=== PATIENT | female | born 1945 | race Caucasian/White ===

== ENCOUNTER 2018-06-29 20:00 | Inpatient (IN) | payer OTHER, MEDICAID ==
[~2018-06-29] VITALS: Ht 154.9 cm; Wt 77.1 kg
[2018-06-29 20:00] VITALS: BP 102/45
[2018-06-29] MEDS ORDERED: NACL 0.9% 1,000 ML IV ONE (20:20)
[2018-06-29] MEDS ORDERED: HEPA500056 SUBQ (20:44)
[2018-06-29] MEDS ORDERED: TRAM50TA1 PO (20:44)
[2018-06-29] MEDS ORDERED: DOCU-299 PO (20:44)
[2018-06-29] MEDS ORDERED: BISA-213 RC (20:44)
[2018-06-29] MEDS ORDERED: ASCO500T45 PO (20:44)
[2018-06-29] MEDS ORDERED: MELA3TAB PO (20:44)
[2018-06-29] MEDS ORDERED: PREG150C PO (20:44)
[2018-06-29] MEDS ORDERED: CELE200C PO (20:44)
[2018-06-29] MEDS ORDERED: GABA400C PO (20:44)
[2018-06-29] MEDS ORDERED: PANT40EC PO (20:44)
[2018-06-29] MEDS ORDERED: CLON0.5T PO (20:44)
[2018-06-29] MEDS ORDERED: HYDR-1093 PO (20:44)
[2018-06-29] MEDS ORDERED: MAGN400S60 PO (20:44)
[2018-06-29] MEDS ORDERED: CARER90 PO (20:44)
[2018-06-29] MEDS ORDERED: ACET-2619 PO (20:44)
[2018-06-29] MEDS ORDERED: AMLO10TA87 PO (20:44)
[2018-06-29] MEDS ORDERED: NITR0.4T2 SL (20:44)
[2018-06-29] MEDS ORDERED: METO25TA PO (20:44)
[2018-06-29] MEDS ORDERED: IBUP-2213 PO (20:44)
[2018-06-29] MEDS ORDERED: FERR325E14 PO (20:44)
[2018-06-29] MEDS ORDERED: AMIO200T5 PO (20:44)
[2018-06-29] MEDS ORDERED: ASPI81CT89 PO (20:44)
[2018-06-29] MEDS ORDERED: LID5T TP (20:44)
[2018-06-29] MEDS ORDERED: HYDR100T79 PO (20:44)
[2018-06-29] MEDS ORDERED: ALBU3SOL83 IH (20:47)
[2018-06-29 21:09] LABS: BASOPHILS # (AUTO) 0.1 K/uL (0.00-0.22); BASOPHILS % (AUTO) 0.8 % (0.0-2.0); EOSINOPHILS # (AUTO) 0.7 K/uL (0-0.4); EOSINOPHILS % (AUTO) 9.3 % (0.0-4.0); HEMATOCRIT 23.5 % (36-48); HEMOGLOBIN 7.6 g/dL (12.0-16.0); LYMPHOCYTES # (AUTO) 2.4 K/uL (2.5-16.5); LYMPHOCYTES % (AUTO) 32.7 % (20.5-51.1); MEAN CORPUSCULAR HEMOGLOBIN 31 pg (27-31); MEAN CORPUSCULAR HGB CONC 32 g/dL (33-37); MEAN CORPUSCULAR VOLUME 96.5 fL (80-94); MONOCYTES # (AUTO) 0.6 K/uL (0.8-1.0); MONOCYTES % (AUTO) 8.5 % (1.7-9.3); NEUTROPHILS # (AUTO) 3.5 K/uL (1.8-7.7); NEUTROPHILS % (AUTO) 48.7 % (42.2-75.2); PLATELET COUNT (AUTO) 123 K/uL (140-450); RED BLOOD CELL COUNT(AUTO) 2.43 MIL/uL (4.20-5.40); RED CELL DISTRIBUTION WIDTH 18.7 % (11.6-13.7); WHITE BLOOD COUNT (AUTO) 7.2 K/uL (4.8-10.8)
[2018-06-29 21:17] LABS: CARBON DIOXIDE 25.8 mmol/L (21-32); CHLORIDE 101 mmol/L (98-107); CREATININE 1.1 mg/dL (0.6-1.3); GLUCOSE 109 mg/dL (74-106); POTASSIUM 4.8 mmol/L (3.5-5.1); SODIUM SERUM 134 mmol/L (136-145); UREA NITROGEN, BLOOD 24 mg/dL (7-18)
[2018-06-29 21:24] LABS: ALBUMIN 2.7 g/dL (3.4-5.0); ASPARTATE AMINOTRANSFERASE 31 U/L (15-37); TOTAL BILIRUBIN 0.4 mg/dL (0.0-1.0)
[2018-06-29 21:39] LABS: PROTHROMBIN TIME 10.1 secs (10.8-13.4)
[2018-06-29] MEDS ORDERED: ACETAMINOPHEN 325 MG TAB PO PRN ×2 (22:05→23:20)
[2018-06-29] MEDS ORDERED: DOCUSATE SODIUM 100 MG GELCAP PO PRN (22:05)
[2018-06-29] MEDS ORDERED: ONDANSETRON 4 MG/2 ML VIAL IM/IVP PRN (22:05)
[2018-06-29] MEDS ORDERED: MORPHINE SULFATE 2 MG/ML SYR IVP PRN (22:05)
[2018-06-29] MEDS ORDERED: ALBUTEROL SULFATE/IPRATROPIU 3 ML SOL IH PRN (22:05)
[2018-06-29 22:40] LABS: MAGNESIUM 1.6 mg/dL (1.8-2.4); PHOSPHORUS 4.6 mg/dL (2.5-4.9); THYROID STIMULATING HORMONE 7.34 uIU/mL (0.34-3.74)
[2018-06-29 22:45] VITALS: BP 108/52
[2018-06-29] MEDS ORDERED: IBUPROFEN 600 MG TAB PO PRN (23:20)
[2018-06-29] MEDS ORDERED: hydrOXYzine HCL 25 MG TAB PO PRN (23:20)
[2018-06-29] MEDS ORDERED: NITROGLYCERIN 0.4 MG TAB SL PRN (23:20)
[2018-06-29] MEDS ORDERED: BISACODYL 10 MG SUPP RC PRN (23:20)
[2018-06-29] MEDS ORDERED: PANTOPRAZOLE 40 MG TABEC PO SCH (23:20)
[2018-06-29] MEDS ORDERED: MAGNESIUM HYDROXIDE 2400 MG/30 ML UDC PO PRN (23:20)
[2018-06-30] MEDS ORDERED: NITROGLYCERIN 0.4 MG TAB SL PRN (00:30)
[2018-06-30] MEDS ORDERED: MAG SULF 2000 MG/WATER PREMIX 50 ML IV SCH (01:30)
[2018-06-30] MEDS: NACL 0.9% 1,000 ML IV SCH ×2 (01:32→15:40)
[2018-06-30 01:38] LABS: APPEARANCE,URINE CLEAR (CLEAR); BILIRUBIN,URINE NEGATIVE (NEGATIVE); BLOOD, URINE NEGATIVE (NEGATIVE); COLOR,URINE YELLOW (YELLOW); LEUKOCYTE ESTERASE ,URINE 1+ (NEGATIVE); NITRITE, URINE NEGATIVE (NEGATIVE); PH,URINE 6.5 (5.0-9.0); UGLUCOSE NEGATIVE (NEGATIVE)
[2018-06-30 01:44] LABS: RBC,URINE 0-5 (RARE) /HPF (0-5); WBC,URINE 16-25 (MOD) /HPF (0-5)
[2018-06-30 02:38] VITALS: BP 110/58
[2018-06-30] MEDS: PANTOPRAZOLE 40 MG TABEC PO SCH (05:35)
[2018-06-30 06:12] LABS: BASOPHILS # (AUTO) 0.1 K/uL (0.00-0.22); BASOPHILS % (AUTO) 0.9 % (0.0-2.0); EOSINOPHILS # (AUTO) 0.7 K/uL (0-0.4); EOSINOPHILS % (AUTO) 11.9 % (0.0-4.0); HEMATOCRIT 23.7 % (36-48); HEMOGLOBIN 7.7 g/dL (12.0-16.0); LYMPHOCYTES % (AUTO) 35.3 % (20.5-51.1); MEAN CORPUSCULAR HEMOGLOBIN 31 pg (27-31); MEAN CORPUSCULAR HGB CONC 32 g/dL (33-37); MEAN CORPUSCULAR VOLUME 96.7 fL (80-94); MONOCYTES # (AUTO) 0.5 K/uL (0.8-1.0); MONOCYTES % (AUTO) 8.3 % (1.7-9.3); NEUTROPHILS # (AUTO) 2.5 K/uL (1.8-7.7); NEUTROPHILS % (AUTO) 43.6 % (42.2-75.2); PLATELET COUNT (AUTO) 123 K/uL (140-450); RED BLOOD CELL COUNT(AUTO) 2.46 MIL/uL (4.20-5.40); RED CELL DISTRIBUTION WIDTH 18.9 % (11.6-13.7); WHITE BLOOD COUNT (AUTO) 5.7 K/uL (4.8-10.8)
[2018-06-30 06:36] LABS: ANION GAP 11.9 (8-16); CARBON DIOXIDE 25.4 mmol/L (21-32); CHLORIDE 105 mmol/L (98-107); GLUCOSE 87 mg/dL (74-106); POTASSIUM 4.3 mmol/L (3.5-5.1); SODIUM SERUM 138 mmol/L (136-145); UREA NITROGEN, BLOOD 22 mg/dL (7-18)
[2018-06-30] MEDS ORDERED: cefTRIAXone 1,000 MG VIAL ONE (06:48)
[2018-06-30 06:51] LABS: MAGNESIUM 2.4 mg/dL (1.8-2.4); PHOSPHORUS 3.9 mg/dL (2.5-4.9)
[2018-06-30 08:00] VITALS: BP_SYST 102; BP_SYST 125; BP_DIAS 51
[2018-06-30] MEDS ORDERED: LIDOCAINE 5% 1 EA PATCH TP SCH (09:00)
[2018-06-30] MEDS ORDERED: CELECOXIB 100 MG CAP PO SCH (09:00)
[2018-06-30] MEDS: hydrALAZINE 25 MG TAB PO SCH ×3 (09:00→17:07)
[2018-06-30] MEDS: amLODIPine 5 MG TAB PO SCH (09:00)
[2018-06-30] MEDS: METOPROLOL 25 MG TAB PO SCH ×3 (09:00→21:27)
[2018-06-30] MEDS: DILTIAZEM 30 MG TAB PO SCH ×3 (09:00→17:07)
[2018-06-30] MEDS ORDERED: ASPIRIN 81 MG TAB.CHEW PO SCH (09:00)
[2018-06-30] MEDS: HYDROcodone/APAP 5/325 MG 1 TAB TAB PO PRN (09:18)
[2018-06-30] MEDS: AMIODARONE 200 MG TAB PO SCH ×3 (09:18→21:27)
[2018-06-30] MEDS: PREGABALIN 50 MG CAP PO SCH ×3 (09:18→21:26)
[2018-06-30] MEDS: ASCORBIC ACID 500 MG TAB PO SCH ×3 (09:19→21:27)
[2018-06-30] MEDS: FERROUS SULFATE 325 MG TABEC PO SCH ×3 (09:19→21:28)
[2018-06-30] MEDS: DOCUSATE SODIUM 100 MG GELCAP PO SCH ×3 (09:19→21:28)
[2018-06-30] MEDS: GABAPENTIN 100 MG CAP PO SCH ×3 (09:19→21:26)
[2018-06-30] MEDS: MAGNESIUM HYDROXIDE 2400 MG/30 ML UDC PO SCH (09:20)
[2018-06-30] MEDS: MAGNESIUM CITRATE 300 ML BTL PO SCH ×2 (11:18→18:58)
[2018-06-30] MEDS: BISACODYL 5 MG TABEC PO SCH ×2 (11:18→18:58)
[2018-06-30 12:00] VITALS: BP 111/54
[2018-06-30 16:00] VITALS: BP 125/51
[2018-06-30] MEDS ORDERED: MAGNESIUM CITRATE 300 ML BTL PO ONE (19:00)
[2018-06-30] MEDS ORDERED: BISACODYL 5 MG TABEC PO ONE (19:00)
[2018-06-30 20:00] VITALS: BP 126/74
[2018-06-30] MEDS ORDERED: HYDRAGUARD CREAM TP PRN (21:55)
[2018-06-30] MEDS: SODIUM PHOSPHATE 118 ML ENEM RC SCH ×2 (22:00→23:30)
[2018-07-01] VITALS: BP 116/41
[2018-07-01] MEDS: HYDRAGUARD CREAM TP SCH ×2 (00:23→13:07)
[2018-07-01] MEDS: PANTOPRAZOLE 40 MG TABEC PO SCH (00:24)
[2018-07-01 04:00] VITALS: BP 128/40
[2018-07-01 06:19] LABS: BASOPHILS # (AUTO) 0.1 K/uL (0.00-0.22); BASOPHILS % (AUTO) 0.9 % (0.0-2.0); EOSINOPHILS # (AUTO) 0.6 K/uL (0-0.4); EOSINOPHILS % (AUTO) 7.3 % (0.0-4.0); HEMATOCRIT 23.2 % (36-48); HEMOGLOBIN 7.6 g/dL (12.0-16.0); LYMPHOCYTES # (AUTO) 1.9 K/uL (2.5-16.5); LYMPHOCYTES % (AUTO) 24.6 % (20.5-51.1); MEAN CORPUSCULAR HEMOGLOBIN 31 pg (27-31); MEAN CORPUSCULAR HGB CONC 33 g/dL (33-37); MONOCYTES # (AUTO) 0.3 K/uL (0.8-1.0); MONOCYTES % (AUTO) 4.5 % (1.7-9.3); NEUTROPHILS # (AUTO) 4.8 K/uL (1.8-7.7); NEUTROPHILS % (AUTO) 62.7 % (42.2-75.2); PLATELET COUNT (AUTO) 123 K/uL (140-450); RED BLOOD CELL COUNT(AUTO) 2.42 MIL/uL (4.20-5.40); RED CELL DISTRIBUTION WIDTH 18.6 % (11.6-13.7); WHITE BLOOD COUNT (AUTO) 7.6 K/uL (4.8-10.8)
[2018-07-01 06:27] LABS: ANION GAP 5.5 (8-16); CHLORIDE 111 mmol/L (98-107); CREATININE 0.7 mg/dL (0.6-1.3); GLUCOSE 94 mg/dL (74-106); POTASSIUM 3.5 mmol/L (3.5-5.1); SODIUM SERUM 140 mmol/L (136-145); UREA NITROGEN, BLOOD 10 mg/dL (7-18)
[2018-07-01] MEDS ORDERED: MIDAZOLAM 2 MG/2 ML VIAL ONE (07:17)
[2018-07-01] MEDS ORDERED: fentaNYL 0.05 MG/ML VIAL ONE (07:17)
[2018-07-01] MEDS ORDERED: hydrOXYzine HCL 25 MG TAB PO PRN (07:29)
[2018-07-01 08:00] VITALS: BP 116/61
[2018-07-01] MEDS ORDERED: MIDAZOLAM 2 MG/2 ML VIAL IVP ONE (08:15)
[2018-07-01] MEDS ORDERED: fentaNYL 0.05 MG/ML VIAL IVP ONE (08:15)
[2018-07-01 08:25] LABS: FOLIC ACID 10.3 ng/mL (>3.0)
[2018-07-01] MEDS: MAGNESIUM HYDROXIDE 2400 MG/30 ML UDC PO SCH (09:00)
[2018-07-01 12:00] VITALS: BP 113/45
[2018-07-01] MEDS: hydrALAZINE 25 MG TAB PO SCH ×3 (13:00→17:00)
[2018-07-01] MEDS: DILTIAZEM 30 MG TAB PO SCH ×3 (13:00→17:00)
[2018-07-01] MEDS: DOCUSATE SODIUM 100 MG GELCAP PO SCH ×2 (13:01→20:44)
[2018-07-01] MEDS: amLODIPine 5 MG TAB PO SCH (13:01)
[2018-07-01] MEDS: GABAPENTIN 100 MG CAP PO SCH (13:03)
[2018-07-01] MEDS: ATORVASTATIN 20 MG TAB PO SCH (13:04)
[2018-07-01] MEDS: FERROUS SULFATE 325 MG TABEC PO SCH ×2 (13:04→20:43)
[2018-07-01] MEDS: ASCORBIC ACID 500 MG TAB PO SCH ×2 (13:05→20:42)
[2018-07-01] MEDS: METOPROLOL 25 MG TAB PO SCH ×2 (13:05→20:44)
[2018-07-01] MEDS: PREGABALIN 50 MG CAP PO SCH ×2 (13:05→20:43)
[2018-07-01] MEDS: AMIODARONE 200 MG TAB PO SCH ×2 (13:06→20:45)
[2018-07-01] MEDS: LIDOCAINE 5% 1 EA PATCH TP SCH (13:07)
[2018-07-01] MEDS ORDERED: FOAM DRESSING TP PRN (15:10)
[2018-07-01] MEDS ORDERED: ALBUTEROL SULFATE/IPRATROPIU 3 ML SOL IH PRN (15:50)
[2018-07-01 16:00] VITALS: BP 108/47
[2018-07-01] MEDS ORDERED: AZITHROMYCIN 250 MG TAB PO SCH (16:30)
[2018-07-01] MEDS ORDERED: PIPER/TAZO 3.375GM/D5W PREMIX 50 ML IV SCH (18:00)
[2018-07-01 20:00] VITALS: BP 109/50
[2018-07-01] MEDS: HYDROcodone/APAP 5/325 MG 1 TAB TAB PO PRN (20:20)
[2018-07-02] VITALS: BP 107/46
[2018-07-02] MEDS: HYDRAGUARD CREAM TP SCH (01:50)
[2018-07-02 04:00] VITALS: BP 129/55
[2018-07-02] MEDS: PANTOPRAZOLE 40 MG TABEC PO SCH (05:40)
[2018-07-02 06:25] LABS: BASOPHILS # (AUTO) 0.1 K/uL (0.00-0.22); EOSINOPHILS # (AUTO) 0.4 K/uL (0-0.4); EOSINOPHILS % (AUTO) 7.3 % (0.0-4.0); HEMATOCRIT 25.1 % (36-48); HEMOGLOBIN 8.1 g/dL (12.0-16.0); LYMPHOCYTES # (AUTO) 2.2 K/uL (2.5-16.5); LYMPHOCYTES % (AUTO) 37.7 % (20.5-51.1); MEAN CORPUSCULAR HEMOGLOBIN 31 pg (27-31); MEAN CORPUSCULAR HGB CONC 32 g/dL (33-37); MEAN CORPUSCULAR VOLUME 97.3 fL (80-94); MONOCYTES # (AUTO) 0.4 K/uL (0.8-1.0); MONOCYTES % (AUTO) 7.4 % (1.7-9.3); NEUTROPHILS # (AUTO) 2.7 K/uL (1.8-7.7); NEUTROPHILS % (AUTO) 46.6 % (42.2-75.2); PLATELET COUNT (AUTO) 123 K/uL (140-450); RED BLOOD CELL COUNT(AUTO) 2.59 MIL/uL (4.20-5.40); WHITE BLOOD COUNT (AUTO) 5.8 K/uL (4.8-10.8)
[2018-07-02] MEDS ORDERED: ATOR20TA40 PO (06:40)
[2018-07-02] MEDS ORDERED: PANT40EC PO (06:45)
[2018-07-02] MEDS ORDERED: AZIT250T3 PO (06:50)
[2018-07-02] MEDS ORDERED: CEFT1SOL1 IV (06:51)
[2018-07-02] MEDS ORDERED: LACT10CA1 PO (06:52)
[2018-07-02 07:32] LABS: ANION GAP 10.3 (8-16); CARBON DIOXIDE 26.7 mmol/L (21-32); CHLORIDE 109 mmol/L (98-107); CREATININE 0.7 mg/dL (0.6-1.3); GLUCOSE 85 mg/dL (74-106); SODIUM SERUM 142 mmol/L (136-145); UREA NITROGEN, BLOOD 8 mg/dL (7-18)
[2018-07-02 08:00] VITALS: BP 101/56
[2018-07-02] MEDS: ASCORBIC ACID 500 MG TAB PO SCH (08:26)
[2018-07-02] MEDS: DOCUSATE SODIUM 100 MG GELCAP PO SCH (08:26)
[2018-07-02] MEDS: PREGABALIN 50 MG CAP PO SCH (08:26)
[2018-07-02] MEDS: ATORVASTATIN 20 MG TAB PO SCH (08:27)
[2018-07-02] MEDS: FERROUS SULFATE 325 MG TABEC PO SCH (08:27)
[2018-07-02] MEDS: MAGNESIUM HYDROXIDE 2400 MG/30 ML UDC PO SCH (08:27)
[2018-07-02 08:44] VITALS: BP 101/52
[2018-07-02] MEDS: amLODIPine 5 MG TAB PO SCH (09:00)
[2018-07-02] MEDS ORDERED: LACTOBACILLUS RHAMNOSUS GG 1 EACH CAP PO SCH (09:00)
[2018-07-02] MEDS: LIDOCAINE 5% 1 EA PATCH TP SCH (09:00)
[2018-07-02] MEDS: AMIODARONE 200 MG TAB PO SCH (09:00)
[2018-07-02] MEDS: DILTIAZEM 30 MG TAB PO SCH (09:00)
[2018-07-02] MEDS ORDERED: AZITHROMYCIN 250 MG TAB PO SCH (09:00)
[2018-07-02] MEDS: hydrALAZINE 25 MG TAB PO SCH (09:00)
[2018-07-02] MEDS: METOPROLOL 25 MG TAB PO SCH (09:00)
== END 2018-07-02 10:12 | DRG 377 ==
LOC: MED 20:00 → MTU 22:02
PROVIDERS: ADMIT General Practice; ATTEND General Practice
PROC: 0DJD8ZZ Inspection of Lower Intestinal Tract, Via Natural or Artificial Opening Endoscopic (ICD-10-PCS; principal; 2018-07-01 07:30)
PROC: 0W3P8ZZ Control Bleeding in Gastrointestinal Tract, Via Natural or Artificial Opening Endoscopic (ICD-10-PCS; 2018-07-01 07:30)
PROC: 0DB68ZX Excision of Stomach, Via Natural or Artificial Opening Endoscopic, Diagnostic (ICD-10-PCS; 2018-07-01 07:30)
DX: K25.4 Chronic or unspecified gastric ulcer with hemorrhage (principal); E43 Unspecified severe protein-calorie malnutrition; J18.9 Pneumonia, unspecified organism; N39.0 Urinary tract infection, site not specified; E87.1 Hypo-osmolality and hyponatremia; K22.10 Ulcer of esophagus without bleeding; D64.9 Anemia, unspecified; I10 Essential (primary) hypertension; E66.9 Obesity, unspecified; D69.6 Thrombocytopenia, unspecified; G89.29 Other chronic pain; M54.9 Dorsalgia, unspecified; I48.91 Unspecified atrial fibrillation; M25.552 Pain in left hip; K59.09 Other constipation; G47.00 Insomnia, unspecified; E83.42 Hypomagnesemia; M06.9 Rheumatoid arthritis, unspecified; K21.0 Gastro-esophageal reflux disease with esophagitis; K57.30 Diverticulosis of large intestine without perforation or abscess without bleeding; Z68.32 Body mass index [BMI] 32.0-32.9, adult; Z71.3 Dietary counseling and surveillance; Z79.82 Long term (current) use of aspirin; Z79.899 Other long term (current) drug therapy; Z98.42 Cataract extraction status, left eye; Z98.41 Cataract extraction status, right eye; Z90.710 Acquired absence of both cervix and uterus; Z82.3 Family history of stroke; Z82.49 Family history of ischemic heart disease and other diseases of the circulatory system; Z88.1 Allergy status to other antibiotic agents
CPT/HCPCS: 36415; 71045; 80048; 80053; 81001; 82150; 82607; 82728; 82746; 83036; 83540; 83690; 83735; 83880; 84100; 84443; 84484; 85025; 85045; 85610; 85730; 86677; 86886; 86900; 86901; 87081; 87086; 93005; 96360; 96361; 97110; 97116; 97530; 99285; J0696; J2250; J3010; J3475; J7030; J7060; Q0092